=== PATIENT | male | born 1980 | race Two or more races ===

== ENCOUNTER 2017-12-20 18:52 | Emergency (ER) | payer SELFPAY ==
[2017-12-20] MEDS ORDERED: LIDOCAINE 1% INJ-PF (10 MG/ML) 30 ML SDV INJ ONE (19:41)
[2017-12-20] MEDS ORDERED: DIPH/PERTUSS(ACELL)/TETANUS VAC/PF 0.5 ML SYR (>=10YO) IM ONE (19:47)
--- NOTE | 2017-12-20 19:47 | ER Document Report ---
ED General - General Chief Complaint: Laceration Stated Complaint: LEFT ARM LACERATION Time Seen by Provider: 12/20/17 19:17 TRAVEL OUTSIDE OF THE [place] IN LAST 30 DAYS: No - HPI Notes: Patient is a 36-year-old male who presents to the ED complaining of multiple lacerations status post injury while at work. Patient states that he was using a tool is up from his hand that ended up cutting his posterior left hand, left forearm, and the left anterior thigh. Patient states that he is still able to move his extremities otherwise without any difficulties. He does not have any associated numbness or tingling. Patient states that there are no missing parts or pieces to the equipment that he was using. Patient states his last tetanus was 6 years ago. Patient states that he has otherwise been well with no other significant past medical history to report. Denies any drug allergies. Denies any headache, fever, head injury, neck pain, URI, sore throat , chest pain, palpitations, syncope, cough, shortness of breath, wheeze, dyspnea , abdominal pain, nausea/vomiting/diarrhea, urinary retention, dysuria, hematuria, muscle paralysis/weakness, or rash. - Related Data Allergies/Adverse Reactions: No Known Allergies Allergy (Unverified 12/20/17 18:57) Past Medical History - Social History Smoking Status: Never Smoker Family History: Reviewed & Not Pertinent Review of Systems - Review of Systems -: Yes All other systems reviewed and negative Physical Exam - Vital signs Vitals: Temp Pulse Resp BP Pulse Ox 98.0 F 62 20 112/78 100 12/20/17 18:59 12/20/17 18:59 12/20/17 18:59 12/20/17 18:59 12/20/17 18:59 - Notes Notes: PHYSICAL EXAMINATION: GENERAL: Well-appearing, well-nourished and in no acute distress. LUNGS: Breath sounds clear to auscultation bilaterally and equal. No wheezes rales or rhonchi. HEART: Regular rate and rhythm without murmurs, rubs, gallops. Musculoskeletal: Left 3rd digit: FROM. Strength 4+/5 when compared to the rest of the hand (5+/5) to extension. N/v intact distal. Hand/wrist otherwise b/l: FROM to passive/active. Strength 5+/5. N/V intact distal. Extremities: No cyanosis, clubbing, or edema b/l. Peripheral pulses 2+. Capillary refill less than 3 seconds. NEUROLOGICAL: Cranial nerves grossly intact. Normal speech, normal gait. Normal sensory, motor exams PSYCH: Normal mood, normal affect. SKIN: Left posterior hand: 2 linear superficial 1cm lacerations to the posterior lt hand near the 3rd MCP joint. There is a [id number] superficial laceration to the posterior left forearm, irregular. There is a 2cm superficial linear laceration to the anterior middle thigh. No active bleeding. Course - Re-evaluation Re-evalutation: 12/20/17 23:20 Patient is an afebrile, well-hydrated, 36-year-old male who presents to the ED with multiple lacerations to the left upper extremity from an injury at work. There is also noted to be some cortical disruption at the distal third metacarpal at the site of 1 of his lacerations which suggests an open fracture. See x-ray result. Patient does have weakness with extension of his third finger as well. There is no other obvious neurovascular compromise or obvious dislocation/septic joint. Wound was thoroughly irrigated and cleansed at each location. Wound edges were approximated appropriately, see procedure note. Volar wrist splint was placed and fingers in extension and sling provided. Wound instructions reviewed after wound dressing was placed as well. I will be sending him home with a prescription for Keflex. Patient to call orthopedics tomorrow to schedule an appointment for further evaluation and management. Return to the ED with any worsening/concerning symptoms otherwise as reviewed discharge. Patient is in agreement. Sutures need removed in 10-[address] Anton who is in agreement with dipo/plan. - Vital Signs Vital signs: Temp Pulse Resp BP Pulse Ox 98.5 F 66 20 104/50 L 97 12/20/17 21:33 12/20/17 21:33 12/20/17 18:59 12/20/17 21:33 12/20/17 21:33 Procedures - Immobilization Left Hand Time completed: 23:20 Pre-Proc Neuro Vasc Exam: Normal Immobilizer type: Volar splint - with fingers in extension and sling provided Performed by: PCT Post-Proc Neuro Vasc Exam: Normal, Unchanged from pre-exam - Laceration/Wound Repair Left Hand Time completed: 21:30 Wound length (cm): 1 Wound's Depth, Shape: Superficial, Linear Laceration pre-procedure: Sterile PPE donned, Sterile drapes applied, Other - chlorhexadine Anesthetic type: 1% Lidocaine Volume Anesthetic (mLs): 4 Wound explored: Clean, No foreign body removed Irrigated w/ Saline (mLs): 50 Wound Debrided: Minimal Wound Repaired With: Sutures Suture Size/Type: 4:0, Nylon Number of Sutures: 2 Layer Closure?: No Post-procedure wound care: Sterile dressing applied Post-procedure NV exam normal: Yes Complications: No Left 3rd digit Time completed: 21:30 Wound length (cm): 1 Wound's Depth, Shape: Superficial, Linear Laceration pre-procedure: Sterile PPE donned, Sterile drapes applied, Other - chlorhexadine Anesthetic type: 1% Lidocaine Volume Anesthetic (mLs): 4 Wound explored: Clean, No foreign body removed Irrigated w/ Saline (mLs): 50 Wound Debrided: none Wound Repaired With: Sutures Suture Size/Type: 4:0, Nylon Number of Sutures: 2 Post-procedure wound care: Sterile dressing applied Post-procedure NV exam normal: Yes Complications: No Left Arm Time completed: 21:30 Wound length (cm): 12 - 12x5 cm Wound's Depth, Shape: Superficial, Irregular. No: Into muscle Laceration pre-procedure: Sterile PPE donned, Sterile drapes applied, Other - chlorhexadine Anesthetic type: 1% Lidocaine Volume Anesthetic (mLs): 20 Wound explored: Clean, No foreign body removed Irrigated w/ Saline (mLs): 300 Wound Debrided: Moderate Wound Repaired With: Sutures Suture Size/Type: 4:0, Nylon Number of Sutures: 12 - 3 are horizontal mattress Layer Closure?: No Post-procedure wound care: Sterile dressing applied Post-procedure NV exam normal: Yes Complications: No Left Thigh Time completed: 21:30 Wound length (cm): 2 Wound's Depth, Shape: Superficial, Linear Laceration pre-procedure: Sterile PPE donned, Sterile drapes applied, Other - chlorhexadine Anesthetic type: 1% Lidocaine Volume Anesthetic (mLs): 5 Wound explored: Clean, No foreign body removed Irrigated w/ Saline (mLs): 100 Wound Debrided: none Wound Repaired With: Sutures Suture Size/Type: 4:0, Nylon Number of Sutures: 4 Layer Closure?: No Post-procedure wound care: Sterile dressing applied Post-procedure NV exam normal: Yes Complications: No Discharge - Discharge Clinical Impression: Open fracture Arm laceration Qualifiers: Encounter type: initial encounter Laterality: left Qualified Code(s): S41.112A - Laceration without foreign body of left upper arm, initial encounter Finger laceration involving tendon Qualifiers: Encounter type: initial encounter Qualified Code(s): S61.219A - Laceration without foreign body of unspecified finger without damage to nail, initial encounter Thigh laceration Qualifiers: Encounter type: initial encounter Laterality: left Qualified Code(s): S71.112A - Laceration without foreign body, left thigh, initial encounter Condition: Stable Disposition: HOME, SELF-CARE Instructions: Antibiotic Ointment Protection ([facility]), Laceration Care ([facility]), Prophylactic Antibiotic ([facility]), Soap Cleansing ([facility]), Tetanus Immunization Given ([facility]) Additional Instructions: Do not shower or bathe for 24 hours. After 24 hours you may shower but no submersion of the wound under water. Keep the original dressing on the wound for 24 hours unless the drainage soaks through. Change the dressing daily thereafter and keep the knots of the suture material clean from any dried discharge. You may leave the wound open to the air once there is no more discharge. Return to the ED and/or your PCM in 2-3 days for a recheck. Monitor for any signs of worsening pain or redness, purulent drainage, streaks, and/or fever. Return to the ED if noticing any of the above symptoms or as needed. Take medications as directed. Your sutures will need to be removed in 10-12 days. Call orthopedics tomorrow to schedule an appointment for further evaluation and management Prescriptions: Cephalexin Monohydrate [Keflex 500 mg Capsule] 500 mg PO BID #20 capsule Referrals: [facility] [Provider Group] - Follow up tomorrow
[2017-12-20] MEDS ORDERED: OXYCODONE HCL IR 5 MG TABLET PO ONE (20:09)
--- NOTE | 2017-12-20 20:50 | RADIOLOGY REPORT (SQ) ---
EXAM DESCRIPTION: FOREARM LEFT COMPLETED DATE/TIME: 12/20/2017 8:33 pm REASON FOR STUDY: injury, laceration COMPARISON: None. NUMBER OF VIEWS: Two views. TECHNIQUE: Two radiographic images acquired of the left forearm, including elbow and wrist in at [address] one projection. LIMITATIONS: None. FINDINGS: MINERALIZATION: Normal. BONES: No acute fracture. No worrisome bone lesions. SOFT TISSUES: Dorsal Laceration-swelling. No radiopaque foreign body. OTHER: No other significant finding. IMPRESSION: No fracture. TECHNICAL DOCUMENTATION: JOB ID: [id number] [place]-72 2010 [employer]- All Rights Reserved Reading location - IP/workstation name: [email or web address]
--- NOTE | 2017-12-20 20:57 | RADIOLOGY REPORT (SQ) ---
EXAM DESCRIPTION: HAND LEFT 3 VIEWS COMPLETED DATE/TIME: 12/20/2017 8:33 pm REASON FOR STUDY: injury, laceration COMPARISON: None. EXAM PARAMETERS: NUMBER OF VIEWS: Three views. TECHNIQUE: AP, lateral and oblique radiographic images acquired of the left hand. LIMITATIONS: None. FINDINGS: MINERALIZATION: Normal. BONES: Small cortical irregularity on the lateral projection of what is felt to be the distal metaphy sis of the 3rd metacarpal. No other fracture identified. JOINTS: No effusions. SOFT TISSUES: Dorsal soft tissue swelling -laceration. No radiopaque foreign body. OTHER: No other significant finding. IMPRESSION: Small cortical irregularity on the lateral projection of what is felt to be the distal m etaphysis of the 3rd metacarpal. Otherwise no additional osseous findings. TECHNICAL DOCUMENTATION: JOB ID: [id number] [place]-72 2010 [employer]- All Rights Reserved Reading location - IP/workstation name: [email or web address]
[2017-12-20] MEDS ORDERED: CEPHALEXIN 500 MG CAPSULE PO ONE (22:08)
[2017-12-20] MEDS ORDERED: HYDROCODONE/ACETAMINOPHEN 5-325 MG (6 TAB/ER DISP) PO PRN (23:36)
[2017-12-20 23:48] VITALS: BP 129/74
== END 2017-12-20 23:48 | disposition home or self-care (01) ==
LOC: ER 18:52
DX: T14.8XXA Other injury of unspecified body region, initial encounter (principal); S61.412A Laceration without foreign body of left hand, initial encounter; S51.812A Laceration without foreign body of left forearm, initial encounter; S71.112A Laceration without foreign body, left thigh, initial encounter; S61.213A Laceration without foreign body of left middle finger without damage to nail, initial encounter; W27.8XXA Contact with other nonpowered hand tool, initial encounter; Y99.0 Civilian activity done for income or pay
CPT/HCPCS: 90471; 90715; 99283